=== PATIENT | male | born 1960 | race Caucasian/White ===

== ENCOUNTER 2020-01-17 14:19 | Emergency (ER) | payer MEDICAID ==
[~2020-01-17] VITALS: Ht 165.1 cm; Wt 63.6 kg
[2020-01-17] MEDS ORDERED: BACITRACIN 0.9 GM PACKET OINTMENT TP ONE (15:15)
[2020-01-17] MEDS ORDERED: DOXYCYCLINE HYCLATE 100 MG TABLET PO ONE (15:15)
[2020-01-17 16:02] VITALS: BP 135/88
== END 2020-01-17 16:03 | disposition home or self-care (01) ==
LOC: EMS 14:26
DX: L03.317 Cellulitis of buttock (principal); F17.210 Nicotine dependence, cigarettes, uncomplicated; F12.90 Cannabis use, unspecified, uncomplicated; Z91.013 Allergy to seafood

== ENCOUNTER 2020-04-10 15:27 | Emergency (ER) | payer MEDICAID ==
[~2020-04-10] VITALS: Ht 167.6 cm; Wt 75.0 kg
[2020-04-10] MEDS ORDERED: OMEP20 PO (15:32)
[2020-04-10] MEDS ORDERED: FAMOTIDINE 10 MG/ML 2 ML VIAL IVP ONE (20:30)
[2020-04-10] MEDS ORDERED: SODIUM CHLORIDE 0.9% 1,000 ML IV ONE (20:30)
[2020-04-10] MEDS ORDERED: BARIUM SULFATE 0.1% SUSPENSION 450 ML BOTTLE PO ONE (20:30)
[2020-04-10] MEDS ORDERED: PB/HYOSCY/ATR/SCOP/LIDO/MAALOX 55 ML BOTTLE PO ONE (20:30)
[2020-04-10] MEDS ORDERED: SODIUM CHLORIDE 0.9% 100 ML ONE (21:01)
[2020-04-10] MEDS ORDERED: IOVERSOL 320 MG/ML 100 ML VIAL ONE (21:01)
[2020-04-10 21:19] LABS: BASOPHILS % (AUTO) 0.8 % (0.0-2.0); EOSINOPHILS % (AUTO) 3.1 % (1.0-6.0); HEMATOCRIT 45.2 % (41-53); HEMOGLOBIN 15.1 g/dL (13.5-17.5); LYMPHOCYTES # (AUTO) 1.6 K/uL (1.0-4.8); LYMPHOCYTES % (AUTO) 28.7 % (22.0-44.0); MEAN CORPUSCULAR HEMOGLOBIN 29.1 pg (26.0-34.0); MEAN CORPUSCULAR HGB CONC 33.3 G/dL (31.0-37.0); MEAN CORPUSCULAR VOLUME 87 fL (80-100); MONOCYTES # (AUTO) 0.5 K/uL (0.1-1.0); NEUTROPHILS # (AUTO) 3.3 K/uL (1.8-7.7); NEUTROPHILS % (AUTO) 58.4 % (40.0-70.0); PLATELET COUNT (AUTO) 257 K/uL (150-450); RED BLOOD CELL COUNT(AUTO) 5.18 MIL/uL (4.50-5.90); RED CELL DISTRIBUTION WIDTH 16.4 % (11.5-14.5)
[2020-04-10 21:58] LABS: ANION GAP 6 mmol/L (8-16); CALCIUM, TOTAL 8.6 mg/dL (8.8-10.5); CARBON DIOXIDE 30 mmol/L (22-29); CHLORIDE 105 mmol/L (98-107); GLOMERULAR FILTR. RATE CALC > 60 mL/min (>60); GLUCOSE,RANDOM 94 mg/dL (70-110); POTASSIUM 4.9 mmol/L (3.5-5.1); SODIUM SERUM 141 mmol/L (136-145); UREA NITROGEN, BLOOD 17 mg/dL (7-18)
[2020-04-10 22:02] LABS: ALANINE AMINOTRANSFERASE 35 U/L (12-78); ALBUMIN 3.9 g/dL (3.4-5.0); ALKALINE PHOSPHATASE 83 U/L (46-116); ASPARTATE AMINOTRANSFERASE 18 U/L (15-37); BILIRUBIN,TOTAL 0.4 mg/dL (0.1-1.0); LIPASE 167 U/L (73-393); TOTAL PROTEIN, SERUM 8.1 g/dL (6.4-8.2)
[2020-04-11 02:07] LABS: APPEARANCE,URINE CLEAR (CLEAR); BILIRUBIN,URINE NEGATIVE (NEGATIVE); GLUCOSE, URINE (UA) NEGATIVE (NEGATIVE); KETONES,URINE NEGATIVE (NEGATIVE); LEUKOCYTE ESTERASE ,URINE NEGATIVE (NEGATIVE); NITRATE,URINE NEGATIVE (NEGATIVE); OCCULT BLOOD,URINE NEGATIVE (NEGATIVE); PROTEIN,URINE NEGATIVE (NEGATIVE); UROBILINOGEN,URINE 0.2 mg/dL (<=1.0)
[2020-04-11 02:09] LABS: BACTERIA,URINE Few /HPF (None Seen); RBC,URINE 0-2 /HPF (0-2); SQUAMOUS EPITHELIAL CELL,UR Rare /LPF (None Seen); WBC,URINE 0-2 /HPF (0-5)
[2020-04-11 02:52] VITALS: BP 138/80
== END 2020-04-11 03:22 | disposition home or self-care (01) ==
LOC: EMS 15:28
DX: N40.0 Benign prostatic hyperplasia without lower urinary tract symptoms (principal); R10.84 Generalized abdominal pain; R19.7 Diarrhea, unspecified; F12.90 Cannabis use, unspecified, uncomplicated; F17.210 Nicotine dependence, cigarettes, uncomplicated; Z91.013 Allergy to seafood
CPT/HCPCS: 36415; 74177; 80053; 81001; 82271; 83690; 85025; 96361; 96374; 99285; J3490; J7030; J7050; Q9967

== ENCOUNTER 2022-01-01 11:16 | Emergency (ER) | payer MEDICAID ==
[~2022-01-01] VITALS: Ht 165.1 cm; Wt 68.2 kg
[~2022-01-01 11:16] MED LIST: OMEP20 PO
[2022-01-01 13:34] VITALS: BP 140/92
[2022-01-01] MEDS ORDERED: DIPH50 PO (14:28)
[2022-01-01] MEDS ORDERED: PERM60CR19 TP (14:28)
== END 2022-01-01 14:34 | disposition home or self-care (01) ==
LOC: EMS 11:16
DX: R21 Rash and other nonspecific skin eruption (principal); B86 Scabies; F12.90 Cannabis use, unspecified, uncomplicated
CPT/HCPCS: 99282; Z7502